=== PATIENT | female | born 1985 | race Caucasian/White ===

== ENCOUNTER 2021-07-24 15:27 | Outpatient (CLI) | payer OTHER, SELFPAY ==
--- NOTE | 2021-07-24 15:34 | XR_ITS ---
WS: [id number] RIGHT WRIST: 3 VIEW(S) TECHNIQUE: PA, oblique and lateral. HISTORY: right wrist pain COMPARISON: None available. No acute fracture or dislocation. No joint space abnormality. No soft tissue swelling. XR/XR wrist RT min 3V* [id number] IMPRESSION: Negative RIGHT wrist.
== END 2021-07-24 15:28 | disposition home or self-care (01) ==
PROVIDERS: Visit Provider Nurse Practitioner Family
DX: M25.531 Pain in right wrist (principal)
CPT/HCPCS: 73110

== ENCOUNTER 2022-05-30 10:07 | Emergency (ER) | payer OTHER, SELFPAY ==
[2022-05-30 10:20] VITALS: BP 165/114; PULSE 110; RESP 20; TEMP 36.9; O2SAT 98; BMI 40.8
--- NOTE | 2022-05-30 10:43 | ED_ITS ---
HPI - Skin/Abscess/Foreign Bdy General: Chief complaint: Skin/Abscess/Foreign Body Stated complaint: chills, sweats Time Seen by Provider: 05/30/22 10:29 Source: patient Mode of arrival: ambulatory Limitations: no limitations History of Present Illness: 37-year-old female who presents to the emergency r oom with complaint of chills sweats. She has a small area on the left upper abdomen is red and inflamed and has some some lymphangitic spread. She was seen yesterday by Dr. Donovan [facility] and started on clindamycin states the spread seems to have increased she just generally is not feeling well. She is extremely anxious. She has a history of hypertension and preeclampsia still currently on labetalol. No vomiting no diarrhea no abdominal pain no other injuries or discomfort. Denies chest pain. MD complaint: other Onset (ago): day(s) Tetanus up to date: yes Severity: mild Relieving factors: none Exacerbating factors: none Context: other (Cellulitis recently started on oral antibiotic) Associated symptoms: Reports fever(s); Deny chills, nausea or vomiting Treatments prior to arrival: none Review of Systems Const: Reports: fever(s); Denies: chills, body aches, change in appetite, fatigue or malaise ENMT: Denies: throat pain, ear or mastoid pain, nasal discharge or nasal congestion Card: Denies: chest pain, palpitations, irregular heart rhythm, edema, dyspnea on exertion or orthopnea Resp: Denies: dyspnea, productive cough or non-productive cough GI: Denies: abdominal pain, nausea, vomiting, hematemesis, coffee ground emesis, diarrhea, constipation, bloating, hematochezia or melena : Denies: flank pain, difficulty voiding, dysuria, urinary frequency or urinary urgency Skin/Breast: Denies: rash or pruritus Psych: Reports: anxiety PFSH ED PFSH: Medical History No pertinent past medical history Surgical History No pertinent past surgical history Social History Smoking and tobacco status: never smoked Second hand smoke exposure: No Alcohol intake: never Physical Exam Const: GENERAL APPEARANCE: cooperative and comfortable ORIENTATION/CONSCIOU SNESS: Yes awake, Yes oriented to person, Yes oriented to place and Yes oriented to time HENMT: COMMON NORMALS: normocephalic, atraumatic and hearing grossly normal bilaterally HEAD & SCALP: normocephalic and atraumatic Resp: COMMON NORMALS: normal respiratory effort, No retractions, No use of accessory muscles and clear to auscultation bilaterally AUSCULTATION: clear to auscultation bilaterally Cardio: COMMON NORMALS: regular rate, regular rhythm and No murmurs present (Cardio) RATE: regular rate RHYTHM: regular rhythm GI: COMMON NORMALS: Soft to palpation and No hepatosplenomegaly present AUSCULTATION: Yes normoactive bowel sounds PALPATION: Yes Soft to palpation, No Tenderness to palpation present (GI), No Guarding due to palpation present (GI) and Yes No hepatosplenomegaly present Extremity: COMMON NORMALS: normal to inspection, capillary refill normal, no clubbing, cyanosis or edema, no calf tenderness and no pedal edema Neuro: SENSORIUM/ORIENTATION: Yes oriented to person, Yes oriented to place and Yes oriented to time Skin: COMMON NORMALS: no rashes or lesions noted GENERAL SKIN EXAM: no rashes or lesions noted Course Vital Signs: Vital signs: Vital Signs Temperature 98.4 F 05/30/22 10:20 Pulse Rate 82 05/30/22 12:55 Respiratory Rate 16 05/30/22 12:55 Blood Pressure 162/90 05/30/22 12:55 Pulse Oximetry 97 05/30/22 12:55 Oxygen Delivery Me thod 05/30/22 12:00 MDM - Skin/Abscess/Foreign Bdy Medicial Decision Making White count not significantly elevated she does have cellulitis with some localized lymphangitis. Cultures done continue antibiotics follow-up with outpatient primary care physician return if has worsening problems. Medical Records I reviewed the patient's medical records. Lab Data I reviewed the patient's lab results. : 05/30/22 11:22 05/30/22 11:22 Laboratory Results WBC 10.2 10^3/uL (4.0-10.0) H 05/30/22 11:22 RBC 4.70 10^6/uL (4.1-5.3) 05/30/22 11:22 Hgb 13.0 g/dL (11.5-15.3) 05/30/22 11:22 Hct 40.2 % (37.0-47.0) 05/30/22 11:22 MCV 85.5 fl (81-99) 05/30/22 11:22 MCH 27.7 pg (28.0-34.0) L 05/30/22 11:22 MCHC 32.3 g/dL (30.0-36.0) 05/30/22 11:22 RDW 13.1 % (12.1-15.1) 05/30/22 11:22 Plt Count 274 10^3/cmm (130-400) 05/30/22 11:22 MPV 9.8 fL (7.4-10.4) 05/30/22 11:22 Neut % (Auto) 64.7 % 05/30/22 11:22 Lymph % (Auto) 26.1 % 05/30/22 11:22 [place] % (Auto) 4.5 % 05/30/22 11:22 Eos % (Auto) 3.6 % 05/30/22 11:22 Baso % (Auto) 0.4 % 05/30/22 11:22 Neut # (Auto) 6.58 10^3/uL (1.8-7.7) 05/30/22 11:22 Lymph # (Auto) 2.7 10^3/uL (0.8-4.8) 05/30/22 11:22 [place] # (Auto) 0.5 10^3/uL (0.2-0.9) 05/30/22 11:22 Eos # (Auto) 0.4 10^3/uL (0.0-0.8) 05/30/22 11:22 Baso # (Auto) 0.0 10^3/uL (0.0-0.1) 05/30/22 11:22 Nucleated RBC % (auto) 0 % 05/30/22 11:22 Nucleated RBCs # 0.0 /100WBC 05/30/22 11:22 Sodium 136 mmol/L (136-145) 05/30/22 11:22 Potassium 4.3 mmol/L (3.5-5.1) 05/30/22 11:22 Chloride 103 mmol/L (98-107) 05/30/22 11:22 Carbon Dioxide 21 mmol/L (22-29) L 05/30/22 11:22 Anion Gap 16.3 (5-19) 05/30/22 11:22 BUN 15 mg/dL (6-20) 05/30/22 11:22 Creatinine 0.5 mg/dL (0.5-0.9) 05/30/22 11:22 GFR Calculation 138.1 mL/min (90-130) H 05/30/22 11:22 Glucose 115 mg/dL (65-115) 05/30/22 11:22 Calculated Osmolality 284 mOsm/kg (285-295) L 05/30/22 11:22 Calcium 9.1 mg/dL (8.5-10.5) 05/30/22 11:22 Total Bilirubin 0.7 mg/dL (0.15-1.2) 05/30/22 11:22 AST 16 U/L (0-32) 05/30/22 11:22 ALT 22 U/L (0-33) 05/30/22 11:22 Alkaline Phosphatase 77 IU/L (35-105) 05/30/22 11:22 Total Protein 7.3 g/dL (6.6-8.7) 05/30/22 11:22 Albumin 4.1 g/dL (3.5-5.2) 05/30/22 11:22 Globulin 3.2 g/dL (1.3-4.6) 05/30/22 11:22 Urine Color Straw (Yellow) 05/30/22 11:26 Urine Appearance Clear (CLEAR) 05/30/22 11:26 Urine pH 5 (5-7) 05/30/22 11:26 Ur Specific [place] 1.010 (1.005-1.030) 05/30/22 11:26 Urine Protein Neg (Negative) 05/30/22 11:26 Urine Glucose (UA) Norm (Normal) 05/30/22 11:26 Urine Ketones 1+ (Negative) H 05/30/22 11:26 Urine Blood Neg (Negative) 05/30/22 11:26 Urine Nitrate Negative (Negative) 05/30/22 11:26 Urine Bilirubin Neg (Negative) 05/30/22 11:26 Urine Urobilinogen Norm mg/dL (Negative) 05/30/22 11:26 Ur Leukocyte Esterase Negative (Negative) 05/30/22 11:26 Discharge Plan Discharge Patient Disposition: Home Clinical Impression: Cellulitis Condition: Stable Prescriptions: No Action labetalol 100 mg tablet 50 mg PO DAILY loratadine [Claritin] 10 mg tablet 10 mg PO DAILY albuterol sulfate [Ventolin HFA] 90 mcg/actuation HFA aerosol inhaler 2 puff inhalation Q6H PRN cholecalciferol (vitamin D3) 50 mcg (2,000 unit) capsule 50 mcg PO DAILY ketoconazole 2 % shampoo 1 applic topical .2 x weekly Qty: 120 3RF Rx Instructions: Lather into scalp 2 times weekly. Allow to sit on scalp for 5 minutes before rinsing. azelaic acid 15 % gel 1 applic topical BID Qty: 50 3RF Rx Instructions: thin film to face ferrous sulfate [Iron (ferrous sulfate)] 325 mg (65 mg iron) tablet 325 mg PO DAILY [id number] 137 mcg-50 mcg- 0.9 % kit,spray suspension and spray 1 - 2 spray intranasal BID Qty: 1 0RF Rx Instructions: administer into each nostril Discharge Orders: Discharge ED (Routine); Ordered 05/30/22 Ordered By: Jose L Nova Discharge Diet: Usual diet Discharge Activity: Resume usual activity Patient Instructions: Opioid Safety Activity Restrictions/Additional Instructions: Continue clindamycin add the Levaquin. Follow-up with your primary care doctor early next week. Coding Level of Care Code ED Line Assembly Utility Worker for Gregg Fwan Exam Detailed
[2022-05-30 11:32] LABS: Add Urine Microscopic? NO; Charge for UA Resulting for Rev
[2022-05-30 11:35] LABS: Basophils % 0.4 %; Eosinophils # 0.4 10^3/uL (0.0-0.8); Eosinophils % 3.6 %; Hematocrit 40.2 % (37.0-47.0); Lymphocytes # 2.7 10^3/uL (0.8-4.8); Lymphocytes % 26.1 %; Mean Corpuscular HGB Conc 32.3 g/dL (30.0-36.0); Mean Corpuscular Hemoglobin 27.7 pg (28.0-34.0); Mean Corpuscular Volume 85.5 fl (81-99); Mean Platelet Volume 9.8 fL (7.4-10.4); Monocytes # 0.5 10^3/uL (0.2-0.9); Monocytes % 4.5 %; Neutrophils # 6.58 10^3/uL (1.8-7.7); Neutrophils % 64.7 %; Nucleated Red Blood Cells % 0 %; Platelet Count 274 10^3/cmm (130-400); Red Cell Distribution Width 13.1 % (12.1-15.1); White Blood Count 10.2 10^3/uL (4.0-10.0)
[2022-05-30 11:37] LABS: Urine Appearance Clear (CLEAR); Urine Color Straw (Yellow); pH Urine 5 (5-7)
[2022-05-30 11:38] LABS: Bilirubin Urine Neg (Negative); Blood Urine Neg (Negative); Glucose Urine UA Norm (Normal); Ketones Urine 1+ (Negative); Leukocyte Esterase Urine Negative (Negative); Nitrate Urine Negative (Negative); Protein Urine Neg (Negative); Urobilinogen Urine Norm (Negative)
[2022-05-30 11:51] LABS: Alanine Aminotransferase 22 U/L (0-33); Albumin Level 4.1 g/dL (3.5-5.2); Alkaline Phosphatase 77 IU/L (35-105); Blood Urea Nitrogen 15 mg/dL (6-20); Calcium 9.1 mg/dL (8.5-10.5); Carbon Dioxide 21 mmol/L (22-29); Chloride 103 mmol/L (98-107); Globulin 3.2 g/dL (1.3-4.6); Glomerular Filtration Rate 138.1 mL/min (90-130); Glucose 115 mg/dL (65-115); Osmolality Calculated 284 mOsm/kg (285-295); Sodium 136 mmol/L (136-145); Total Bilirubin 0.7 mg/dL (0.15-1.2); Total Protein 7.3 g/dL (6.6-8.7)
[2022-05-30 11:56] VITALS: BP 141/93; PULSE 84; RESP 16; O2SAT 98
[2022-05-30] MEDS: sodium chloride 0.9% 1,000 ML 999 ML IV (11:57)
[2022-05-30 12:00] VITALS: BP 163/90; PULSE 82; RESP 16; O2SAT 97
[2022-05-30 12:01] LABS: Anion Gap 16.3 (5-19); Aspartate Amino Transferase 16 U/L (0-32); Potassium 4.3 mmol/L (3.5-5.1)
[2022-05-30 12:30] VITALS: O2SAT 98
[2022-05-30 12:55] VITALS: BP 162/90; PULSE 82; RESP 16; O2SAT 97
== END 2022-05-30 12:55 | disposition home or self-care (01) ==
PROVIDERS: Emergency Provider Family Medicine
DX: L03.311 Cellulitis of abdominal wall (principal)
CPT/HCPCS: 36415; 80053; 81003; 85025; 87040; 99283; J7030

== ENCOUNTER → 2023-03-30 15:12 | Outpatient (BNVA) | payer OTHER, SELFPAY | PROVIDERS: Visit Provider Dermatology | DX: L21.8 Other seborrheic dermatitis (principal); L81.1 Chloasma; D22.61 Melanocytic nevi of right upper limb, including shoulder; L82.1 Other seborrheic keratosis; L81.4 Other melanin hyperpigmentation; Z87.2 Personal history of diseases of the skin and subcutaneous tissue | CPT/HCPCS: 99213 ==

== ENCOUNTER 2023-05-01 22:11 | Emergency (ER) | payer OTHER, SELFPAY ==
[2023-05-01 22:27] VITALS: BP 153/97; PULSE 97; RESP 18; O2SAT 99; BMI 40.1
--- NOTE | 2023-05-01 22:35 | ED_ITS ---
HPI - Wound/Laceration General: Chief Complaint: Wound/Laceration Stated Complaint: Left Foot Injury Time Seen by Provider: 05/01/23 22:35 History of Present Illness: 38-year-old female comes in today with injury to the left foot. 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 Patient sustained a laceration to the middle of her left foot. Patient reports some pain. Patient does not recall her last tetanus. Patient does have multiple drug allergies. Review of Systems General: Reports: 10 or more systems reviewed and unremarkable except in HPI and below Skin/Breast: Reports: new lesions [facility] ED PFSH: Medical History No pertinent past medical history Surgical History No pertinent past surgical history Social History Smoking and tobacco status: never smoked Second hand smoke exposure: No Alcohol intake: never Substance/Drug Use: never Female Reproductive History: Date of last menstrual period: 04/16/23 Physical Exam Const: COMMON NORMALS: alert Neck/C-Spine: COMMON NORMALS: full ROM Resp: COMMON NORMALS: normal respiratory effort and clear to auscultation bilaterally AUSCULTATION: clear to auscultation bilaterally Cardio: COMMON NORMALS: regular rate and regular rhythm RATE: regular rate RHYTHM: regular rhythm GI: COMMON NORMALS: non-tender Extremity: LEFT LOWER EXTREMITY: Yes foot & digits (1 cm laceration to the dorsal left foot) Neuro: SENSORIUM/ORIENTATION: Yes alert Skin: TRAUMA: laceration Course Vital Signs: Vital signs: Vital Signs Pulse Rate 97 05/01/23 22:27 Respiratory Rate 18 05/01/23 22:27 Blood Pressure 153/97 05/01/23 22:27 Pulse Oximetry 99 05/01/23 22:27 Oxygen Delivery Me thod Room Air 05/01/23 22:27 MDM - Wound/Laceration Medical Decision Making 38-year-old female comes in with a laceration to the dorsal left foot. On exam patient has a 1 cm laceration. Distal sensation is intact. Cap refill is intact distally. Differential diagnosis includes but not limited to fracture, foreign body, laceration. X-ray was unremarkable for fracture or foreign body. Wound was cleaned and dressed with a Steri-Strip and a light pressure dressing. Patient tolerated well. Patient will be covered with doxycycline for puncture wound and prophylaxis for infection. Patient reported understanding of care plan and need for follow-up or return to the ER. Lab Data Radiology Impressions Foot X-Ray 05/01/23 22:53 IMPRESSION: 1. No acute fracture of the left foot. Followup imaging recommended in 7-14 days if clinical concern for fracture persists. 2. Small plantar calcaneal bone spur. 3. No soft tissue swelling. No radiopaque foreign body. Discharge Plan Discharge Patient Disposition: Home Clinical Impression: Puncture wound of foot Qualifiers: Encounter type: initial encounter Laterality: left Qualified Code(s): S91.332A - Puncture wound without foreign body, left foot, initial encounter Condition: Stable Prescriptions: New doxycycline monohydrate 100 mg capsule 100 mg PO BID 7 Days Qty: 14 0RF No Action labetalol 100 mg tablet 50 mg PO DAILY loratadine [Claritin] 10 mg tablet 10 mg PO DAILY albuterol sulfate [Ventolin HFA] 90 mcg/actuation HFA aerosol inhaler 2 puff inhalation Q6H PRN cholecalciferol (vitamin D3) 50 mcg (2,000 unit) capsule 50 mcg PO DAILY ketoconazole 2 % shampoo 1 applic topical .2 x weekly Qty: 120 3RF Rx Instructions: Lather into scalp 2 times weekly. Allow to sit on scalp for 5 minutes before rinsing. azelaic acid 15 % gel 1 applic topical BID Qty: 50 3RF Rx Instructions: thin film to face ferrous sulfate [Iron (ferrous sulfate)] 325 mg (65 mg iron) tablet 325 mg PO DAILY [id number] 137 mcg-50 mcg- 0.9 % kit,spray suspension and spray 1 - 2 spray intranasal BID Qty: 1 0RF Rx Instructions: administer into each nostril Discharge Orders: Discharge ED (Routine); Ordered 05/01/23 Ordered By: Miguel Angel Crystal Referrals: RUBEN BERGMAN MD [Primary Care Provider] - Discharge Diet: Usual diet Discharge Activity: Limit activity as instructed Patient Instructions: Puncture Wound in the Foot (ED) Activity Restrictions/Additional Instructions: Home and rest. Elevate foot for the next 1 to 2 days. Increase activity as tolerated. Keep wound clean and dry. Is important keep the wound as dry as possible for the next 48 hours. Allow Steri-Strips to come off on its own. Take antibiotic doxycycline 100 mg 1 capsule twice a day for the next 7 days. Follow-up with primary care as needed. Return to ER for worsening symptoms such as high fever greater than 100.4, increasing redness and swelling to the foot, or new concerns. Coding Level of Care Code ED Camera Tuning Engineer for Gregg Hollingsworth
--- NOTE | 2023-05-01 22:53 | XRR_ITS ---
PROCEDURE INFORMATION: Exam: XR Left Foot Exam date and time: 05/01/2023 10:59 PM Age: 38 years old Clinical indication: Injury or trauma; Other: Wound; Puncture; Foot; Left; Foreign body involvement not specified; Additional info: Puncture wound TECHNIQUE: Imaging protocol: Radiologic exam of the left foot. Views: 3 or more views. COMPARISON: No relevant prior studies available. FINDINGS: Bones/joints: No acute fracture. No dislocation. Normal bone mineralization. No joint effusion. Joint spaces are maintained. Small plantar calcaneal bone spur. Soft tissues: No soft tissue swelling. No radiopaque foreign body. XR/XR foot LT min 3V* [id number] IMPRESSION: 1. No acute fracture of the left foot. Followup imaging recommended in 7-14 days if clinical concern for fracture persists. 2. Small plantar calcaneal bone spur. 3. No soft tissue swelling. No radiopaque foreign body.
[2023-05-01] MEDS: doxycycline 100 mg Tablet PO (23:09)
[2023-05-01] MEDS: ibuprofen 200 mg Tablet 400 MG PO (23:50)
[2023-05-01] MEDS: tetanus-dipt-pertussis 0.5 mL SDV IM (23:52)
[2023-05-01 23:57] VITALS: PULSE 80; RESP 16; O2SAT 98
== END 2023-05-01 23:55 | disposition home or self-care (01) ==
PROVIDERS: Emergency Provider Nurse Practitioner Family; PCP Internal Medicine
DX: S91.332A Puncture wound without foreign body, left foot, initial encounter (principal); W26.0XXA Contact with knife, initial encounter; Z23 Encounter for immunization
CPT/HCPCS: 73630; 90471; 90715; 99283

== ENCOUNTER → 2023-06-24 11:12 | Outpatient (BNVA) | payer OTHER, SELFPAY | PROVIDERS: PCP Internal Medicine; Visit Provider Nurse Practitioner Family | DX: D22.61 Melanocytic nevi of right upper limb, including shoulder (principal); L81.4 Other melanin hyperpigmentation; L82.0 Inflamed seborrheic keratosis; Z87.2 Personal history of diseases of the skin and subcutaneous tissue | CPT/HCPCS: 17110; 99213 ==

== ENCOUNTER → 2023-08-03 15:55 | Outpatient (BNVA) | payer OTHER, SELFPAY | PROVIDERS: PCP Internal Medicine; Visit Provider Nurse Practitioner Family | DX: J02.9 Acute pharyngitis, unspecified (principal) | CPT/HCPCS: 87880 ==

== ENCOUNTER → 2023-08-27 10:25 | Outpatient (BNVA) | payer OTHER, SELFPAY | PROVIDERS: PCP Internal Medicine; Visit Provider Nurse Practitioner Family | DX: J02.9 Acute pharyngitis, unspecified (principal) | CPT/HCPCS: 87880 ==

== ENCOUNTER 2023-12-21 12:51 | Emergency (ER) | payer OTHER, SELFPAY ==
[2023-12-21 12:54] VITALS: BP 173/121; PULSE 100; RESP 16; TEMP 36.6; O2SAT 99
[2023-12-21] MEDS: metoclopramide 5 mg/mL SDV 2 mL 10 MG IVP (13:13)
[2023-12-21] MEDS: diphenhydrAMINE 50 mg/mL SDV 1mL IVP (13:13)
[2023-12-21] MEDS: methylPREDNISolone sod succ 125 mg/2 mL INJ IVP (13:13)
--- NOTE | 2023-12-21 14:10 | ED_ITS ---
HPI - Allergic Reaction General: Chief complaint: Allergic Reaction Stated complaint: allergic reaction Time Seen by Provider: 12/21/23 12:59 History of Present Illness: HPI narrative: 38-year-old female presents to the emerg ency department stating that she is having allergic reaction. She states that her neck is very itchy and reddened. She states that last night at approximately midnight she went to bed this morning at about 5 AM she woke up and noticed hives all over her arms back and chest. She states she was seen by her PCP and given a Medrol Dosepak and took Benadryl and her rash started to improve. She states she took a nap at home and when she woke up her symptoms have returned and became more severe. She states that she feels like her throat is very itchy and scratchy and she does have significant erythema to her neck chest arms and back as well as hives on her lower back. Review of Systems General: Reports: 10 or more systems reviewed and unremarkable except in HPI and below Skin/Breast: Reports: rash, pruritus and erythema PFSH ED PFSH: Medical History No pertinent past medical history Surgical History No pertinent past surgical history Social History Smoking and tobacco/nicotine status: never used tobacco/nicotine Second hand smoke exposure: No Alcohol intake: never Substance/Drug Use: never Physical Exam Narrative: EXAM NARRATIVE: Constitutional: the patient appears well nourished and of normal development. Vital signs as documented. No acute distress at present. Alert and oriented-to person, place, time and situation. Head, eyes, ears, nose, mouth, throat: Normocephalic, atraumatic. Pupils-equal, round, reactive to light. No scleral icterus. Normal-appearing external ears. Normal appearing nasal turbinates, no drainage. No obvious oral lesions, posterior oropharynx without erythema or exudates. No edema to the posterior oropharynx the uvula is not edematous Neck: Supple, trachea is midline, no lymphadenopathy, no jugular venous distension, thyromegaly, or carotid bruits. Carotid upstrokes are brisk bilaterally. Lungs: clear to auscultation to all lung weber. Symmetrical rise and fall of chest, no obvious signs of increased work of breathing at present. Cardiac: Regular rate and rhythm, positive S1, S2. No murmurs, rubs or gallops that I can appreciate Abdomen: Soft, non-tender to palpation, normal active bowel sounds to all quadrants. No palpable masses, no organomegaly and abdominal bruits. Extremities: 2+ pulses in the upper extremities that are equal bilaterally, 2+ pulses in the lower extremities that are equal bilaterally. Non-edematous. Moves all extremities well, sensation to all extremities are noted. Skin: Warm, dry, intact. Skin on the neck is erythematous and the patient does have urticaria to the low and mid back as well as the bilateral arms. Course Reevaluation(s): Reevaluation #1: Reevaluation the patient after receiving medications demonstrates near complete resolution of her erythema and urticaria. She is no longer having any discomfort to her throat area. She is resting comfortably she did have a consider amount of questions regarding follow-up and I advised her that she would need to take an inventory of what she came in contact with and also follow-up with allergy and immunology for additional evaluation treatment and care and to follow-up with her primary care provider. Time: 14:36 Vital Signs: Vital signs: Vital Signs Temperature 97.9 F 12/21/23 12:54 Pulse Rate 100 12/21/23 12:54 Respiratory Rate 16 12/21/23 12:54 Blood Pressure 173/121 12/21/23 12:54 Pulse Oximetry 99 12/21/23 12:54 Oxygen Delivery Me thod Room Air 12/21/23 12:54 MDM - Allergic Reaction Medical Decision Making Physical exam completed and documented I will provide IV access and provide her with Solu-Medrol as well as Benadryl and Reglan. I will discharge her home with a prescription of prednisone and hydroxyzine. Medical Records I reviewed the patient's medical records. No radiology studies performed this visit Discharge Plan Discharge Patient Disposition: Home Clinical Impression: Acute idiopathic urticaria Condition: Stable Prescriptions: New hydroxyzine HCl 25 mg tablet 25 mg PO TID PRN (Reason: itching) Qty: 60 0RF prednisone 20 mg tablet 60 mg PO DAILY 5 Days Qty: 15 0RF No Action labetalol 100 mg tablet 100 mg PO DAILY loratadine [Claritin] 10 mg tablet 10 mg PO DAILY albuterol sulfate [Ventolin HFA] 90 mcg/actuation HFA aerosol inhaler 2 puff inhalation Q6H PRN (Reason: Shortness Of Breath) cholecalciferol (vitamin D3) 50 mcg (2,000 unit) capsule 50 mcg PO DAILY ketoconazole 2 % shampoo 1 applic topical .2 x weekly Qty: 120 3RF Rx Instructions: Lather into scalp 2 times weekly. Allow to sit on scalp for 5 minutes before rinsing. azelaic acid 15 % gel 1 applic topical BID Qty: 50 3RF Rx Instructions: thin film to face ferrous sulfate [Iron (ferrous sulfate)] 325 mg (65 mg iron) tablet 325 mg PO DAILY [id number] 137 mcg-50 mcg- 0.9 % kit,spray suspension and spray 1 - 2 spray intranasal BID Qty: 1 0RF Rx Instructions: administer into each nostril azithromycin 250 mg tablet See Rx Instructions PO .COMPLEX Qty: 6 0RF Rx Instructions: take 500 mg today (day 1), then 250 mg for 4 days (days 2-5) PO Discharge Orders: Discharge ED (Routine); Ordered 12/21/23 Ordered By: Xander Love Referrals: RUBEN BERGMAN MD [Primary Care Provider] - Discharge Diet: Usual diet Discharge Activity: Resume usual activity Patient Instructions: Opioid Safety, Pain Management Activity Restrictions/Additional Instructions: Activity Restrictions/Additional Instructions: Thank you for choosing [facility] for your healthcare needs today. Please realize that you were seen in the Emergency Department and that we are providing you with an emergency medical screening exam and this may not be a complete and all inclusive of all the testing and or medical work-up that you may need to determine your ailment or severity of your illness. It is very important that you follow-up as instructed with your Primary care provider or Specialist for additional evaluation and to discuss your medical treatment plan. You may return to the Emergency Department should you have concerns or if your condition changes or worsens in any way. Coding Level of Care Code ED Nursing Home Assistant for Gregg Hollingsworth
== END 2023-12-21 14:50 | disposition home or self-care (01) ==
PROVIDERS: Emergency Provider Internal Medicine; PCP Internal Medicine
DX: L50.1 Idiopathic urticaria (principal)
CPT/HCPCS: 96374; 96375; 99284; J1200; J2765; J2930

== ENCOUNTER 2023-12-21 21:53 | Emergency (ER) | payer OTHER, SELFPAY ==
[2023-12-21 21:58] VITALS: BP 177/116; PULSE 102; RESP 18; TEMP 36.7; O2SAT 98
[2023-12-21 22:12] VITALS: PULSE 115; RESP 16; O2SAT 95
--- NOTE | 2023-12-21 22:27 | W.ED.ALLEREA ---
HPI - Allergic Reaction General: Chief complaint: Allergic Reaction Stated complaint: Allergic Reaction Time Seen by Provider: 12/21/23 22:07 Source: patient Mode of arrival: ambulatory Limitations: no limitations History of Present Illness: HPI narrative: 38yo female presents with significant other for evaluation of a rash that started again this evening while she was resting. Patient reports she woke up today around 5 AM with. She states that she did Benadryl and went to her primary care where she was given 20 mg prednisone Dosepak as well as cetirizine. Patient states that she took a nap, woke up and the rash continued, so she came to the emergency department. States she was given IV medications that did help the rash on was prescribed 60 mg prednisone to begin tomorrow. Patient states she did take hydroxyzine tonight when she noticed the rash coming back and monitored the rash over the next 1 to 1.5 hours. States that it continued to worsen. Reports that it is a significant burning sensation. Patient denies any new medications, detergents, perfumes, previous outbreaks such as this, difficulty breathing, difficulty swallowing, vomiting. Associated symptoms: Deny vomiting Review of Systems Const: Denies: fever(s) or chills Card: Denies: chest pain Resp: Denies: dyspnea, wheezing or stridor GI: Denies: vomiting Skin/Breast: Reports: rash, pruritus and erythema [facility] PFSH: Medical History No pertinent past medical history Surgical History No pertinent past surgical history Social History Smoking and tobacco/nicotine status: never used tobacco/nicotine Second hand smoke exposure: No Alcohol intake: never Substance/Drug Use: never Physical Exam Const: COMMON NORMALS: no acute distress, patient oriented x3 and alert GENERAL APPEARANCE: cooperative ORIENTATION/CONSCIOUSNESS: Yes awake OTHER: Patient is ambulatory to the exam room unassisted. She is sitting upright on the stretcher no acute distress. She is able to give history with no difficulty. Family is at bedside HENMT: COMMON NORMALS: normocephalic HEAD & SCALP: normocephalic MOUTH: Normal oral and palatal mucosa present, lip normal and tongue normal THROAT: posterior oropharynx normal Chest: CHEST: Yes Symmetrical chest wall rise Resp: COMMON NORMALS: normal respiratory effort and clear to auscultation bilaterally EFFORT & INSPECTION: Yes able to speak in complete sentences AUSCULTATION: clear to auscultation bilaterally Extremity: COMMON NORMALS: full ROM Neuro: COMMON NORMALS: patient oriented x3 SENSORIUM/ORIENTATION: Yes alert Skin: RASHES: rashes noted (confluence erythema to mid back & mid chest, erythema flexural folds elbow) scattered erythematous macules Rash type: Yes patch and Yes macule Rash distribution: No dermatomal and Yes scattered Rash color: Yes erythematous Course Vital Signs: Vital signs: Vital Signs Temperature 98.1 F 12/21/23 21:58 Pulse Rate 96 12/22/23 00:00 Respiratory Rate 16 12/22/23 00:00 Blood Pressure 142/99 12/22/23 00:00 Pulse Oximetry 92 12/22/23 00:00 Oxygen Delivery Me thod Room Air 12/21/23 21:58 MDM - Allergic Reaction Medical Decision Making 38yo female here with significant other for evaluation of a rash that has been intermittent throughout the day today. Patient reports that she did wake up with a rash this morning at 0 500, took Benadryl, was seen by primary care, came to the emergency department earlier today, and is now back again with the rash. Patient denies difficulty breathing, shortness of breath, difficulty swallowing, vomiting, any other concern at this time. Patient is nontoxic in appearance. Vital signs are stable. Differential diagnosis includes: Urticaria, idiopathic urticaria, allergic reaction, viral exanthem Proceeded with IV methylprednisolone, diphenhydramine, and famotidine as well as 1 L normal saline bolus. At patient's request, proceeded with labs, CBC and CMP are grossly unremarkable. Her blood cell count noted to be elevated, likely related to steroid use. Glucose noted to be elevated, likely related to steroid use. Patient did have almost complete resolution of her rash upon reexam. Discussed with patient that this may be idiopathic in nature. Lengthy conversation with patient about treatment of her rash and unknown etiology. Encourage patient to continue with her previously prescribed prednisone and Claritin. Advised to use Benadryl if she begins to get another rash. Patient does have an EpiPen at home, advised to use if she is progressing towards anaphylaxis. Recommend she call her doctor tomorrow with an update of symptoms and keep her previously scheduled appointment for later this week. Advised to return to the emergency department if any rapid worsening symptoms, difficulty breathing, difficulty swallowing, persistent vomiting, and as needed. Patient states understanding and has no further questions or concerns at this time. Differential Diagnosis Likely allergic reaction, viral enanthem and urticaria Medical Records I reviewed the patient's medical records. Lab Data I reviewed the patient's lab results. 12/21/23 22:41 12/21/23 22:41 Laboratory Results WBC 13.45 10^3/uL (3.29-11.43) H 12/21/23 22:41 RBC 4.95 10^6/uL (3.85-5.65) 12/21/23 22:41 Hgb 13.80 g/dL (11.27-16.99) 12/21/23 22: Hct 41.9 % (36-47) 12/21/23 22: MCV 84.6 fl (85-98) L 12/21/23 22:41 MCH 27.9 pg (27-33) 12/21/23 22: MCHC 32.9 g/dL (30-55) 12/21/23 22: RDW 13.4 % (12.1-15.1) 12/21/23 22: Plt Count 360 10^3/cmm (157-399) 12/21/23 22:41 MPV 9.4 fL (7.4-10.4) 12/21/23 22: Neut % (Auto) 85.4 % 12/21/23 22: Lymph % (Auto) 13.4 % 12/21/23 22:41 [place] % (Auto) 0.5 % 12/21/23 22: Eos % (Auto) 0.0 % 12/21/23: Baso % (Auto) 0.1 % 12/21/23: Neut # (Auto) 11.48 10^3/uL (1.8-7.7) H 12/21/23 22:41 Lymph # (Auto) 1.8 10^3/uL (0.8-4.8) 12/21/23 22:41 [place] # (Auto) 0.1 10^3/uL (0.2-0.9) L 12/21/23 22:41 Eos # (Auto) 0.0 10^3/uL (0.0-0.8) 12/21/23 22:41 Baso # (Auto) 0.0 10^3/uL (0.0-0.1) 12/21/23 22:41 Nucleated RBC % (auto) 0 % 12/21/23 22:41 Nucleated RBCs # 0.0 /100WBC 12/21/23 22:41 Sodium 136 mmol/L (136-145) 12/21/23 22:41 Potassium 4.1 mmol/L (3.5-5.1) 12/21/23 22:41 Chloride 102 mmol/L (98-107) 12/21/23 22:41 Carbon Dioxide 21 mmol/L (22-29) L 12/21/23 22:41 Anion Gap 17.1 (5-19) 12/21/23 22:41 BUN 12 mg/dL (6-20) 12/21/23 22:41 Creatinine 0.6 mg/dL (0.5-0.9) 12/21/23 22:41 GFR Calculation 111.3 mL/min (90-130) 12/21/23 22:41 Glucose 160 mg/dL (65-115) H 12/21/23 22:41 Calculated Osmolality 285 mOsm/kg (285-295) 12/21/23 22:41 Calcium 9.4 mg/dL (8.5-10.5) 12/21/23 22:41 Total Bilirubin 0.8 mg/dL (0.15-1.2) 12/21/23 22:41 AST 14 U/L (0-32) 12/21/23 22:41 ALT 14 U/L (0-33) 12/21/23 22:41 Alkaline Phosphatase 86 U/L (35-105) 12/21/23 22:41 Total Protein 8.2 g/dL (6.6-8.7) 12/21/23 22:41 Albumin 4.6 g/dL (3.5-5.2) 12/21/23 22:41 Globulin 3.6 g/dL (1.3-4.6) 12/21/23 22:41 No radiology studies performed this visit Discharge Plan Discharge Patient Disposition: Home Clinical Impression: Acute idiopathic urticaria Condition: Stable Prescriptions: No Action labetalol 100 mg tablet 100 mg PO DAILY loratadine [Claritin] 10 mg tablet 10 mg PO DAILY albuterol sulfate [Ventolin HFA] 90 mcg/actuation HFA aerosol inhaler 2 puff inhalation Q6H PRN (Reason: Shortness Of Breath) cholecalciferol (vitamin D3) 50 mcg (2,000 unit) capsule 50 mcg PO DAILY ketoconazole 2 % shampoo 1 applic topical .2 x weekly Qty: 120 3RF Rx Instructions: Lather into scalp 2 times weekly. Allow to sit on scalp for 5 minutes before rinsing. azelaic acid 15 % gel 1 applic topical BID Qty: 50 3RF Rx Instructions: thin film to face ferrous sulfate [Iron (ferrous sulfate)] 325 mg (65 mg iron) tablet 325 mg PO DAILY [id number] 137 mcg-50 mcg- 0.9 % kit,spray suspension and spray 1 - 2 spray intranasal BID Qty: 1 0RF Rx Instructions: administer into each nostril azithromycin 250 mg tablet See Rx Instructions PO .COMPLEX Qty: 6 0RF Rx Instructions: take 500 mg today (day 1), then 250 mg for 4 days (days 2-5) PO prednisone 20 mg tablet 60 mg PO DAILY 5 Days Qty: 15 0RF hydroxyzine HCl 25 mg tablet 25 mg PO TID PRN (Reason: itching) Qty: 60 0RF Discharge Orders: Discharge ED (Routine); Ordered 12/22/23 Ordered By: Chetan Mejía Referrals: RUBEN BERGMAN MD [Primary Care Provider] - Discharge Diet: Usual diet Discharge Activity: Resume usual activity Patient Instructions: Urticaria (ED) Activity Restrictions/Additional Instructions: Continue with your previously prescribed prednisone. You may use Benadryl in addition to your Claritin if the rash does return. Try to avoid heat as it will make the rash more prevalent as well as more painful and itchy Please call your doctor with an update and keep your previously scheduled appointment later this week Return to the emergency department if any rapid worsening, difficulty breathing, difficulty swallowing, if you have to use your EpiPen, and as needed Coding Level of Care Code ED [employer] Planning [employer] for [employer]
[2023-12-21] MEDS: diphenhydrAMINE 50 mg/mL SDV 1mL IVP (22:38)
[2023-12-21] MEDS: famotidine 20 mg/2 mL INJ IVP (22:39)
[2023-12-21] MEDS: sodium chloride 0.9% 1,000 ML 999 ML IV (22:40)
[2023-12-21 22:50] LABS: Basophils % 0.1 %; Hematocrit 41.9 % (36-47); Lymphocytes # 1.8 10^3/uL (0.8-4.8); Lymphocytes % 13.4 %; Mean Corpuscular HGB Conc 32.9 g/dL (30-55); Mean Corpuscular Hemoglobin 27.9 pg (27-33); Mean Corpuscular Volume 84.6 fl (85-98); Mean Platelet Volume 9.4 fL (7.4-10.4); Monocytes # 0.1 10^3/uL (0.2-0.9); Monocytes % 0.5 %; Neutrophils # 11.48 10^3/uL (1.8-7.7); Neutrophils % 85.4 %; Nucleated Red Blood Cells % 0 %; Platelet Count 360 10^3/cmm (157-399); Red Blood Count 4.95 10^6/uL (3.85-5.65); Red Cell Distribution Width 13.4 % (12.1-15.1); White Blood Count 13.45 10^3/uL (3.29-11.43)
[2023-12-21 23:08] LABS: Alanine Aminotransferase 14 U/L (0-33); Albumin Level 4.6 g/dL (3.5-5.2); Alkaline Phosphatase 86 U/L (35-105); Anion Gap 17.1 (5-19); Aspartate Amino Transferase 14 U/L (0-32); Blood Urea Nitrogen 12 mg/dL (6-20); Calcium 9.4 mg/dL (8.5-10.5); Carbon Dioxide 21 mmol/L (22-29); Chloride 102 mmol/L (98-107); Globulin 3.6 g/dL (1.3-4.6); Glomerular Filtration Rate 111.3 mL/min (90-130); Glucose 160 mg/dL (65-115); Osmolality Calculated 285 mOsm/kg (285-295); Potassium 4.1 mmol/L (3.5-5.1); Sodium 136 mmol/L (136-145); Total Bilirubin 0.8 mg/dL (0.15-1.2); Total Protein 8.2 g/dL (6.6-8.7)
[2023-12-21] MEDS: methylPREDNISolone sod succ 40 MG in water for injection-sterile 1 ML 12 MG IVP (23:17)
[2023-12-22] VITALS: BP 142/99; PULSE 96; RESP 16; O2SAT 92
== END 2023-12-22 00:49 | disposition home or self-care (01) ==
PROVIDERS: Emergency Provider Nurse Practitioner; PCP Internal Medicine
DX: L50.1 Idiopathic urticaria (principal)
CPT/HCPCS: 80053; 85025; 96374; 96375; 99284; J1200; J2920; J3490; J7030